=== PATIENT | male | born 1970 | race American Indian/Alaskan Native ===

== ENCOUNTER 2016-09-02 13:57 | Day surgery (SDC) | payer MEDICARE ==
[2016-09-02] MEDS: NACL 0.9% 1000 ML 1,000 ML IV SCH ×2 (15:37→18:23)
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
--- NOTE | 2016-09-02 15:49 | Anesthesia Day of Surgery ---
Anesthesia Day of Surgery - Day of Surgery Patient Examined: Yes Patient H&P Reviewed: Yes Patient is NPO: Yes
[2016-09-02] MEDS ORDERED: WATER FOR IRRIG STERILE IR ONE (16:23)
[2016-09-02] MEDS ORDERED: VERSED ONE (17:37)
[2016-09-02] MEDS ORDERED: XYLOCAINE 2% INFILTRATI ONE (17:37)
[2016-09-02] MEDS ORDERED: DIPRIVAN 10 MG/ML IV ONE ×3 (17:37→17:38)
[2016-09-02] MEDS ORDERED: XYLOCAINE MPF 2% ONE (17:40)
[2016-09-02 18:32] VITALS: BP 135/79
--- NOTE | 2016-09-02 18:36 | Operative Report ---
Operative Report Operative Report: Date of procedure: 09/02/2016 Procedure: Esophagogastroduodenoscopy with multiple mucosal biopsies Attending physician: Pavan Jerez MD Bight Maker: Pavan Jerez MD Indication: Patient is a 46-year-old male who presented with a history of epigastric pain indigestion and dysphagia. An upper endoscopy is done to assess patient regarding cause of symptoms so that treatment may be directed based on the findings. Consent: Informed consent was obtained after advising the patient and family regarding nature of this procedure, its indications, potential benefits as well as possible complications including but not limited to bleeding perforation and adverse reaction to medication, infection as well as other cardiopulmonary complications. An informed written and verbal consent was then obtained after due opportunity was provided for questions and answers. Monitoring: Patient was monitored continuously with pulse oximetry and electrocardiographic recordings as well as blood pressure recordings. Vital signs remained stable throughout this procedure with no untoward events. Preoperative assessment: Patient was assessed immediately prior to this procedure for capacity to tolerate monitored anesthesia care and moderate sedation as well as general anesthesia. Patient's ASA classification is 2, Mallampati class is 2, Hyomental distance is 3. Instrument: [employer] video endoscope Medications: Propofol given intravenously in divided doses for details please refer to anesthesia records. Description of procedure: Patient was placed in the left lateral decubitus position after achieving sedation, the endoscope was introduced into the esophagus under direct vision. It was then advanced beyond the esophagus into the stomach and then beyond the stomach into the duodenum and to the second portion of the duodenum. It was subsequently withdrawn with careful inspection of all mucosal surfaces with the following findings. Findings: Patient had mild erosive esophagitis involving the distal esophagus. There was a 1-2 cm sliding hiatal hernia seen on entering into the stomach. There was erythema in the gastric antrum with mucosal erosions. Biopsies of the antrum were obtained to rule out gastritis. The duodenum was normal to second portion. Impression: Mild erosive esophagitis Hiatal hernia Mucosal changes suggestive of erosive gastritis. Plan: Follow pathology report Continue treatment proton pump inhibitors. Additional treatment decisions may be made based on the pathology report.
--- NOTE | 2016-09-02 18:36 | Discharge Summary ---
Short Stay Discharge Plan Activity: advance as tolerated Weight Bearing Status: Weight Bear as Tolerated Diet: regular Follow up with: ASHKAN ADLER MD [Primary Care Provider] - 7 Days
--- NOTE | 2016-09-02 18:46 | Post Anesthesia Evaluation ---
- Post Anesthesia Evaluation Patient Participated: Yes Airway Patent: Yes Stable Respiratory Function: Yes Temp > 96.8F: Yes Pain Manageable: Yes Adequeate Hydration: Yes Anesthesia Complications: No Block Receding Appropriately: Not Applicable
== END 2016-09-02 13:58 | disposition home or self-care (01) ==
LOC: GIO 13:57
PROVIDERS: ATTEND Internal Medicine Gastroenterology
DX: K21.0 Gastro-esophageal reflux disease with esophagitis (principal); K44.9 Diaphragmatic hernia without obstruction or gangrene; F41.9 Anxiety disorder, unspecified; M19.90 Unspecified osteoarthritis, unspecified site; F32.9 Major depressive disorder, single episode, unspecified; I10 Essential (primary) hypertension; Z82.49 Family history of ischemic heart disease and other diseases of the circulatory system; Z80.0 Family history of malignant neoplasm of digestive organs; Z80.42 Family history of malignant neoplasm of prostate; Z80.3 Family history of malignant neoplasm of breast; Z87.891 Personal history of nicotine dependence
CPT/HCPCS: 43239; 88305; 88342; J2250; J2704; J7030

== ENCOUNTER 2016-11-25 12:08 | Day surgery (SDC) | payer MEDICARE ==
[2016-11-25] MEDS ORDERED: NACL 0.9% 1000 ML 1,000 ML IV SCH (13:00)
[2016-11-25] MEDS ORDERED: DIPRIVAN 10 MG/ML IV ONE ×5 (15:12→16:12)
[2016-11-25] MEDS ORDERED: WATER FOR IRRIG STERILE IR ONE (15:24)
--- NOTE | 2016-11-25 15:25 | Anesthesia Consultation ---
Anesthesia Consult and Med Hx Date of service: 11/25/16 - Airway Anesthetic Teeth Evaluation: Good ROM Head & Neck: Adequate Mental/Hyoid Distance: Adequate Mallampati Class: Class II Intubation Access Assessment: Probably Good - Pulmonary Exam CTA: Yes - Cardiac Exam Cardiac Exam: RRR - Pre-Operative Health Status ASA Pre-Surgery Classification: ASA3 Proposed Anesthetic Plan: MAC - Pulmonary Hx Smoking: Yes (1/4 pack/day x 3 years) Hx Respiratory Symptoms: Yes (hx of bronchitis) - Cardiovascular System Hx Hypertension: Yes Hx Heart Attack/AMI: No - Central Nervous System Hx Seizures: Yes CVA: No Hx Psychiatric Problems: Yes (anxiety/depression) - Gastrointestinal Hx Gastroesophageal Reflux Disease: Yes - Endocrine Hx Renal Disease: No Hx Liver Disease: No Hx Non-Insulin Dependent Diabetes: No - Other Systems Hx Cancer: No (SIGNIFICANT FAMILY HISTORY OF CA) Hx Obesity: Yes - Additional Comments Anesthesia Medical History Comments: NAC
--- NOTE | 2016-11-25 15:25 | Anesthesia Day of Surgery ---
Anesthesia Day of Surgery - Day of Surgery Patient Examined: Yes Patient H&P Reviewed: Yes Patient is NPO: Yes
--- NOTE | 2016-11-25 16:47 | Discharge Summary ---
Short Stay Discharge Plan Activity: advance as tolerated Weight Bearing Status: Weight Bear as Tolerated Diet: regular Follow up with: ASHKAN ADLER MD [Primary Care Provider] - 7 Days
--- NOTE | 2016-11-25 16:47 | Operative Report ---
Operative Report Operative Report: Date of procedure: 11/25/2016 Procedure: Colonoscopy with Multiple Hot Biopsy Polypectomies and polyp ablations Attending physician: Pavan Jerez MD Warehouse Team Leader: Pavan Jerez MD Indication: Patient is a 46-year-old male who presents for colonoscopy because of personal history of colon polyps. A colonoscopy serves to evaluate patient so that treatment may be directed based on the findings. Consent: Informed consent was obtained after advising the patient and family regarding nature of this procedure, its indications, potential benefits as well as possible complications including but not limited to bleeding perforation and adverse reaction to medication, infection as well as other cardiopulmonary complications. An informed written and verbal consent was then obtained after due opportunity was provided for questions and answers. Monitoring: Patient was monitored continuously with pulse oximetry and electrocardiographic recordings as well as blood pressure recordings. Vital signs remained stable throughout this procedure with no untoward events. Preoperative assessment: Patient was assessed immediately prior to this procedure for capacity to tolerate monitored anesthesia care and moderate sedation as well as general anesthesia. Patient's ASA classification is 2, Mallampati class is 2, Hyomental distance is 3. Instrument: [employer] video colonoscope Medications: Propofol given intravenously in divided doses. For details please refer to anesthesia records. Description of procedure: Patient was placed in the left lateral decubitus position after achieving sedation, a digital rectal examination was performed following which the colonoscope was introduced into the anal verge and advanced to the cecum which was identified by the cecal valve, the appendiceal orifice, as well as by the cecal strap and direct transillumination. The colonoscope was subsequently withdrawn with careful inspection of all mucosal surfaces. Patient tolerated this procedure well and was subsequently taken to the recovery room. The following findings were noted. Findings: Patient had multiple diminutive polyps in the sigmoid colon which measured 5-10 mm. In all there were more than 70 of these sigmoid colon polyps. These polyps were removed by hot biopsy polypectomy. There were other diminutive polyps in the sigmoid colon that were ablated. There was a small diminutive polyp in the cecum which was removed by hot biopsy polypectomy. There were multiple polyps in the descending colon. In all there are more than 10 of these. These measured between 5-7 mm in size. These were removed by hot biopsy polypectomy. There were also diminutive polyps that were ablated. The rest of the colon to the cecum was normal. On the retroflex view at the anal verge, patient had internal hemorrhoids. Impression: Multiple diminutive sigmoid colon polyp status post hot biopsy polypectomy. Multiple diminutive sigmoid colon polyp status post ablation Multiple diminutive descending colon polyps status post hot biopsy polypectomy and ablation Diminutive cecal polyp status post hot biopsy polypectomy. Internal hemorrhoids. Plan: Follow pathology report. High-fiber diet. Repeat colonoscopy in 6 months if polyps are adenomatous.
[2016-11-25 17:06] VITALS: BP 166/89
== END 2016-11-25 12:09 | disposition home or self-care (01) ==
LOC: GIO 12:08
PROVIDERS: ATTEND Internal Medicine Gastroenterology
DX: K63.5 Polyp of colon (principal); D12.0 Benign neoplasm of cecum; K64.8 Other hemorrhoids; F17.210 Nicotine dependence, cigarettes, uncomplicated; I10 Essential (primary) hypertension; F41.9 Anxiety disorder, unspecified; F32.9 Major depressive disorder, single episode, unspecified; K21.9 Gastro-esophageal reflux disease without esophagitis; E66.9 Obesity, unspecified; Z68.32 Body mass index [BMI] 32.0-32.9, adult; Z98.890 Other specified postprocedural states; Z79.899 Other long term (current) drug therapy; Z80.42 Family history of malignant neoplasm of prostate; Z80.3 Family history of malignant neoplasm of breast; Z80.0 Family history of malignant neoplasm of digestive organs; Z82.49 Family history of ischemic heart disease and other diseases of the circulatory system
CPT/HCPCS: 45384; 45388; 88305; J2704; J7030